=== PATIENT | female | born 1960 | race African-American/Black ===

== ENCOUNTER 2019-07-22 17:54 | Emergency (ER) | payer BC ==
[~2019-07-22] VITALS: Ht 170.2 cm; Wt 127.5 kg
[2019-07-22] MEDS ORDERED: IBUPROFEN 600 MG TAB PO NR (18:05)
[2019-07-22] MEDS ORDERED: ACETAMINOPHEN/CODEINE ELIX 120-12 MG/5 ML UDC ONE (18:14)
[2019-07-22] MEDS ORDERED: ALBUTEROL/IPRATROPIUM 3 ML NEB NEB ONE (18:15)
[2019-07-22] MEDS ORDERED: ONDANSETRON HCL 4 MG ORAL DISINTEGRATING TAB PO NR (18:15)
[2019-07-22] MEDS ORDERED: ACETAMINOPHEN/CODEINE ELIX 120-12 MG/5 ML UDC PO ONE (18:30)
--- NOTE | 2019-07-22 18:31 | Diagnostic Imaging Report ---
EXAMINATION: PA and lateral views of the chest. COMPARISON: None CLINICAL HISTORY: Cough DISCUSSION: Lines/tubes: None. Lungs: The lungs are well inflated and clear. No pneumonia or pulmonary edema. Pleura: No pleural effusion or pneumothorax. Heart and mediastinum: The cardiomediastinal silhouette is normal. Bones and soft tissues: No acute bony abnormalities. IMPRESSION: No acute cardiopulmonary abnormalities. Signed by: Dr. Nacho Chinchilla M.D. on 07/22/2019 6:29 PM
[2019-07-22 19:06] LABS: STREPTOCOCCUS GRP A ANTIGEN NEGATIVE (NEGATIVE)
[2019-07-22 19:09] LABS: INFLUENZAE A&B ANTIGEN (RAPID) NEGATIVE (NEGATIVE)
[2019-07-22 20:44] VITALS: BP 143/69
== END 2019-07-22 20:47 | disposition home or self-care (01) ==
LOC: EDSEX 17:54 → ER 17:54 → EDBD 17:54 → ER 20:47
DX: J11.1 Influenza due to unidentified influenza virus with other respiratory manifestations (principal); J20.9 Acute bronchitis, unspecified; Z88.0 Allergy status to penicillin
CPT/HCPCS: 71046; 83518; 87070; 87400; 94640; 99283; Q0162